=== PATIENT | male | born 1965 | race Caucasian/White ===

== ENCOUNTER 2025-03-20 12:51 | Emergency (ER) | payer OTHER ==
[2025-03-20] MEDS: Lidocaine 2% 11 ML Jelly Filled Syringe MUCMEM ONE (13:43)
== END 2025-03-20 14:55 | disposition home or self-care (01) ==
LOC: JD.ED 12:51
DX: K59.01 Slow transit constipation (principal); I10 Essential (primary) hypertension; Z79.82 Long term (current) use of aspirin; Z79.01 Long term (current) use of anticoagulants; Z95.5 Presence of coronary angioplasty implant and graft; Z79.899 Other long term (current) drug therapy
CPT/HCPCS: 99283; A9270